=== PATIENT | male | born 1990 | race Caucasian/White ===

== ENCOUNTER 2018-10-09 15:50 | Emergency (ER) | payer MEDICARE, MEDICAID ==
[2018-10-09] MEDS ORDERED: HYDROCODONE/APAP 7.5/325MG TABLET PO ONE (16:25)
--- NOTE | 2018-10-09 16:31 | Emergency Department Record ---
History of Present Illness - General Chief Complaint: Fall Injury Stated Complaint: FALL INJURY Time Seen by Provider: 10/09/18 16:24 Source: Patient, Family Mode of Arrival: Ambulatory Limitations: No limitations - History of Present Illness Initial Comments: 28 yo male presents with left rib and left side pain. He is visually impaired and tripped late Thursday or Early during the night in his room. He landed on his left side. The patient took some left over [place] but he ran out. The pain has not improved in the last 2-3 days. No cough, no shortness of breath, no head injury, no neck injury or pain. No extremity complaints. He has ESRD and had his normal HD yesterday. MD Complaint: Fall Onset/Timin -: Days(s) Fall From: Standing When Fall Occurred: 1-3 hours [employer], # Days [employer] (3) Fall Witnessed: No Place Fall Occurred: Home Loss of Consciousness: None Prolonged Down Time?: No Symptoms Prior to Fall: None Location: Chest Severity scale (1-10): 7 Quality: Aching Context: Tripped/slipped, Other Associated Symptoms: Denies - Mike Coma Scale Eye Response: (4) Open spontaneously Motor Response: (6) Obeys commands Verbal Response: (5) Oriented [place] Total: 15 - Related Data Home Medications Medication Instructions Recorded Confirmed Last Taken Cyclobenzaprine HCl [Flexeril] 5 mg PO QHS 10/09/18 10/09/18 Unknown Hydralazine HCl 100 mg PO DAILY 10/09/18 10/09/18 10/09/18 Insulin Lispro [Humalog] 1 unit SQ TIDAC 10/09/18 10/09/18 10/08/18 Metoprolol Succinate [Toprol Xl] 50 mg PO DAILY 10/09/18 10/09/18 10/09/18 Nifedipine [Procardia Xl] 60 mg PO BID 10/09/18 10/09/18 10/09/18 Previous Rx's Medication Instructions Recorded Hydrocodone/Acetaminophen [[place] 1 tab PO Q6H PRN #20 tab 08/22/14 7.5-325 Tablet] Azithromycin [Zithromax] 250 mg PO DAILY #4 tablet 10/09/18 Hydrocodone/APAP 5/325Mg [[place] 1 each PO Q6H #10 tab 10/09/18 5Mg/325Mg] Allergies Allergy/AdvReac Type Severity Reaction Status Date / Time propoxyphene napsylate Allergy Mild ITCHING Verified 10/09/18 16:16 [From DARVOCET-N 100] gabapentin [From Neurontin] Allergy BEHAVIORAL Verified 10/09/18 16:16 CHANGES tramadol Allergy VOMITING Verified 10/09/18 16:16 Travel Screening - Travel/Exposure Within Last 30 Days Have you traveled within the last 30 days?: No - Travel/Exposure Within Last Year Have you traveled outside the [place] in the last year?: No - Additonal Travel Details Have you been exposed to anyone with a communicable illness?: No - Travel Symptoms Symptom Screening: None Review of Systems Constitutional: Denies: Chills, Fever, Malaise, Weakness Eyes: Denies: Eye discharge, Eye pain, Photophobia, Vision change ENT: Denies: Congestion, Throat pain Respiratory: Denies: Cough, Dyspnea Cardiovascular: Reports: Chest pain. Denies: Palpitations, Syncope Endocrine: Denies: Fatigue Gastrointestinal: Reports: Abdominal pain. Denies: Diarrhea, Nausea, Vomiting Genitourinary: Denies: Dysuria, Frequency, Hematuria Musculoskeletal: Reports: Back pain. Denies: Arthralgia, Joint swelling, Myalgia, Neck pain Skin: Denies: Bruising, Change in color, Rash Neurological: Denies: Headache Psychiatric: Denies: Anxiety Hematological/Lymphatic: Denies: Easy bleeding, Easy bruising Past Medical History - SOCIAL HISTORY Smoking Status: Former smoker Alcohol Use: None Drug Use: Occasional Drug Use Detail:: Marijuana - RESPIRATORY Hx Respiratory Disorders: Yes Hx Sleep Apnea: Yes Hx of CPAP: No (still needs to get fitted) - CARDIOVASCULAR Hx Cardio Disorders: Yes Hx Hypertension: Yes - NEURO Hx Neuro Disorders: Yes Hx Neuropathy: Yes (Diabetic) - GI Hx GI Disorders: Yes Comment:: Gastroporesis - Hx Genitourinary Disorders: Yes Hx Dialysis: Yes (3 days weekly) Hx Renal Disease: Yes (end stage renal disease) - ENDOCRINE Hx Endocrine Disorders: Yes Hx Diabetes: Yes Hx Thyroid Disease: No - MUSCULOSKELETAL Hx Musculoskeletal Disorders: No - PSYCH Hx Psych Problems: Yes Hx Anxiety: Yes Hx Depression: Yes - HEMATOLOGY/ONCOLOGY Hx Hematology/Oncology Disorders: No Family Medical History Any Significant Family History?: No Family Hx Comment (NOT TO BE USED IN PLACE OF ITEMS BELOW): Diverticulitis w/ grandma Hx Cancer: Grandparents Hx Diabetes: Grandparents Hx Heart Disease: Grandparents Hx HTN: Mother Physical Exam - General General Appearance: Alert, Oriented x3, Cooperative Limitations: No limitations - Head Head exam: Atraumatic, Normocephalic, Normal inspection - Eye Eye exam: Normal appearance. negative: Conjunctival injection, Periorbital tenderness, Scleral icterus - ENT ENT exam: Normal exam Ear exam: Normal external inspection Nasal Exam: Normal inspection Mouth exam: Normal external inspection - Neck Neck exam: Normal inspection - Respiratory Respiratory exam: Normal lung sounds bilaterally, Chest wall tenderness ( lateral left chest, no crepitus). negative: Accessory muscle use, Decreased breath sounds, Prolonged expiratory, Rhonchi, Stridor, Wheezes - Cardiovascular Cardiovascular Exam: Regular rate, Normal rhythm, Normal heart sounds - GI/Abdominal GI/Abdominal exam: Soft, Tenderness (mild tenderness left lateral upper flank/ abdomen, soft, no bruising). negative: Distended, Guarding - Rectal Rectal exam: Deferred - exam: Deferred - Extremities Extremities exam: Normal inspection. negative: Pedal edema, Tenderness - Back Back exam: Denies: CVA tenderness (R), CVA tenderness (L) - Neurological Neurological exam: Alert, Oriented X3 - Psychiatric Psychiatric exam: Normal affect, Normal mood. negative: Agitated, Anxious - Skin Skin exam: Dry, Intact, Normal color, Warm Course Vital Signs 10/09/18 15:56 Temperature 97.9 F Pulse Rate 85 Respiratory 16 Rate Blood Pressure 182/102 Pulse Ox 95 - Reevaluation(s) Reevaluation #1: The CT scans of the chest, abdomen and pelvis were completed. No acute injury. He has several incidental findings. On the abdomen demonstrated a contracted gall bladder (he was advised to follow up with an ultrasound through his doctor) . His chest CT demonstrates patchy infiltrates in the right middle and upper lobes suspicious for pneumonia. Trace pericardial effusion and trace pleural effusion. Calcified coronary arteries noted. The patient and his mother were urged to followup with their PCP or operations manager to review these findings for future work up needs. 10/09/18 18:07 Disposition Disposition: Discharge Clinical Impression: Rib contusion Qualifiers: Encounter type: initial encounter Laterality: left Qualified Code(s): S20.212A - Contusion of left front wall of thorax, initial encounter Disposition: Home, Self-Care Condition: (1) Good Instructions: Rib Contusion (ED) Additional Instructions: Your CT scan had several incidental findings that you will need to follow up with your doctor. The abdominal CT demonstrated a contracted gall bladder. The radiologist recommends a follow up ultrasound. On the CT of the chest you have patches in the right lung that are suspicious for pneumonia. Take the antibiotic as directed until gone. The radiologist recommends a follow up CT scan in 2 weeks. You also have some calcified coronary arteries. Discuss this with your doctors. You may require follow up testing on your heart. Be seen immediately if worse, fever, short of breath or any other concerns. Call [phone] for medical records to arrange a copy of your records for yourself or to be sent to your doctor Prescriptions: Azithromycin [Zithromax] 250 mg PO DAILY #4 tablet Hydrocodone/APAP 5/325Mg [[place] 5Mg/325Mg] 1 each PO Q6H #10 tab Forms: Patient Portal Access Time of Disposition: 18:16 Quality - Quality Measures Quality Measures: N/A - Blood Pressure Screening Does Patient Have Any of the Following: Active Dx of HTN Blood Pressure Classification: Hypertensive Reading Systolic Measurement: 182 Diastolic Measurement: 102 Screening for High Blood Pressure: Patient Exclusion, Hx of HTN [[id number]]
[2018-10-09] MEDS ORDERED: AZITHROMYCIN 500 MG TABLET PO ONE (18:07)
== END 2018-10-09 18:40 | disposition home or self-care (01) ==
LOC: ER 15:50
DX: S20.212A Contusion of left front wall of thorax, initial encounter (principal); E11.22 Type 2 diabetes mellitus with diabetic chronic kidney disease; I12.0 Hypertensive chronic kidney disease with stage 5 chronic kidney disease or end stage renal disease; N18.6 End stage renal disease; W01.10XA Fall on same level from slipping, tripping and stumbling with subsequent striking against unspecified object, initial encounter; Y92.003 Bedroom of unspecified non-institutional (private) residence as the place of occurrence of the external cause; Z99.2 Dependence on renal dialysis; Z87.891 Personal history of nicotine dependence; Z79.4 Long term (current) use of insulin
CPT/HCPCS: 71250; 74176; 99283; 99284